=== PATIENT | female | born 2000 | race Caucasian/White ===

== ENCOUNTER 2023-11-06 05:30 | Day surgery (SDC) | payer BC ==
[~2023-11-06] VITALS: Ht 165.1 cm; Wt 80.9 kg
[2023-11-06 06:26] LABS: HCG,QUAL RESULT NEGATIVE (NEGATIVE)
[2023-11-06 07:04] VITALS: O2SAT 100
[2023-11-06] MEDS ORDERED: ACETAMINOPHEN I.V. 1000 MG 100 ML IV ONE (08:14)
[2023-11-06] MEDS ORDERED: LABETALOL 100 MG/ 20ML VIAL IVP PRN (08:30)
[2023-11-06] MEDS ORDERED: MIDAZOLAM HCL 2 MG/2 ML VIAL (VERSED) IVP PRN (08:30)
[2023-11-06] MEDS ORDERED: MEPERIDINE HCL/PF 25 MG/ML DISP.SYRIN IVP PRN (08:30)
[2023-11-06] MEDS ORDERED: LR 1,000 ML IV SCH (08:30)
[2023-11-06] MEDS ORDERED: hydrALAZINE HCL 20 MG/ML VIAL IVP PRN (08:30)
[2023-11-06] MEDS ORDERED: METOCLOPRAMIDE HCL 10 MG/2 ML VIAL IVP PRN (08:30)
[2023-11-06] MEDS ORDERED: HYDROmorphone 1 MG/ML INJ. CARTRIDGE IVP PRN (08:30)
[2023-11-06] MEDS ORDERED: DESFLURANE 15 MIN GAS INH ONE (08:53)
[2023-11-06] MEDS ORDERED: PROPOFOL 200MG/ 20ML VIAL (DIPRIVAN) IV ONE (08:53)
[2023-11-06] MEDS ORDERED: DEXAMETHASONE SOD PHOSPHATE 4 MG/ML VIAL IVP ONE (08:53)
[2023-11-06] MEDS ORDERED: ONDANSETRON HCL 4 MG/2 ML VIAL IVP ONE (08:53)
[2023-11-06] MEDS ORDERED: WATER FOR IRRIGATION,STERILE 1,000 ML IRRIG.SOLN IR ONE (08:53)
[2023-11-06] MEDS ORDERED: MIDAZOLAM HCL 5 MG/ML VIAL (VERSED) IV ONE (08:53)
[2023-11-06] MEDS ORDERED: LR 1,000 ML IV.SOLN IV ONE (08:53)
[2023-11-06] MEDS ORDERED: SUGAMMADEX SODIUM 200 MG/2 ML VIAL IV ONE (08:53)
[2023-11-06] MEDS ORDERED: NS IRRIG SOLN 1000 ML IR ONE (08:53)
[2023-11-06] MEDS ORDERED: fentaNYL CITRATE/PF 100 MCG/2 ML AMP IVP ONE (08:53)
[2023-11-06] MEDS ORDERED: LIDOCAINE/EPI 1% 1:100000 20 ML VIAL INJ ONE (08:53)
[2023-11-06] MEDS ORDERED: LIDOCAINE 2%, 20 ML MDV INJ ONE (08:53)
[2023-11-06] MEDS ORDERED: ROCURONIUM BROMIDE 10 MG/ML (ZEMURON) IV ONE (08:53)
[2023-11-06] MEDS ORDERED: HYDROmorphone 2 MG/ML VIAL ONE (09:22)
[2023-11-06] MEDS: HYDROmorphone 1 MG/ML INJ. CARTRIDGE IVP PRN ×2 (09:24→10:29)
[2023-11-06 11:49] VITALS: BP_SYST 122; PULSE 17; RESP 16
== END 2023-11-06 11:41 | disposition home or self-care (01) ==
LOC: SMU 05:30 → SDS 05:30
PROVIDERS: ATTEND Otolaryngology
DX: J35.01 Chronic tonsillitis (principal); F41.9 Anxiety disorder, unspecified; F12.10 Cannabis abuse, uncomplicated; R07.0 Pain in throat
CPT/HCPCS: 42826; 84703; 88304; J3490; J1100; J2001; J2250; J2405; J2704; J3010; J1170; J7120; J0131